=== PATIENT | male | born 1980 | race Caucasian/White ===

== ENCOUNTER 2018-11-02 10:12 | Emergency (ER) | payer MEDICAID, SELFPAY ==
[2018-11-02 10:13] VITALS: BP 146/81; PULSE 85; RESP 18; TEMP 36.8; O2SAT 99; BMI 20.8
--- NOTE | 2018-11-02 10:21 | CT_ITS ---
STUDY: CT ABDOMEN AND PELVIS WITHOUT CONTRAST REASON FOR EXAM: Male, 38 years old. Left flank pain. Frequent urination. RADIATION DOSAGE (If Supplied By Facility): CTDIvol = ( 6.04 ) mGy, DLP = ( 283.89 ) mGycm TECHNIQUE: Transaxial images were obtained from the dome of the diaphragm to the symphysis pubis without oral contrast, and without intravenous contrast. Sagittal and coronal images were reconstructed. Individualized dose optimization techniques were used for this CT. COMPARISON: None. FINDINGS: The visualized lung bases are unremarkable. The visualized portions of the heart are within normal limits. Normal liver. Normal gallbladder and extrahepatic biliary system. Normal spleen. Normal pancreas. Normal bilateral adrenal glands. Normal right kidney. Normal left kidney. There is a small hiatal hernia. Normal small intestine. Normal colon. The appendix is visualized and appears normal. Normal abdominal aorta. Normal inferior vena cava. Normal retroperitoneum. Normal urinary bladder. Normal abdominal wall. Normal osseous structures. CT/Abdomen/Pelvis without Cont IMPRESSION: Normal unenhanced CT of the abdomen and pelvis. Electronically Signed: Cong Jenkins, at 12:20 EDT , Service support ,
[2018-11-02 10:48] LABS: Absolute Neutrophil Count 3.2 X10^3/uL (2.0-7.7); Basophil# 0.02 X10^3/uL; Basophil% 0.3 % (0-1); Eosinophil# 0.12 X10^3/uL; Hematocrit 48.1 % (40-54); Hemoglobin 16.6 g/dl (13.0-16.5); Lymphocyte % 36.2 % (19-41); Mean Corp Hgb Conc 34.5 g/gl (32-36); Mean Corpuscular Hgb 32.2 pg (27.0-32.0); Mean Corpuscular Volume 93.4 fL (80-94); Mean Platelet Vol. 10.6 fl (6.2-12.0); Monocyte# 0.56 X10^3/uL; Monocyte% 9.2 % (0-10); Neutrophil # 3.16 X10^3/uL (2.7-7.7); Neutrophil % 52.1 % (47-70); Platelet Count 238 K/mm3 (150-450); RBC Distribution Width CV 12.9 % (11.6-14.6); RBC Distribution Width SD 43.9 fl (35.1-43.9); Red Blood Count 5.15 M/mm3 (4.6-6.2); White Blood Count 6.1 K/mm3 (4.4-11.0)
[2018-11-02 10:49] LABS: POSITIVE COUNT NO; POSITIVE DIFFERENTIAL NO; POSITIVE MORPHOLOGY NO
[2018-11-02 10:56] LABS: Anion Gap 1 (5-15); BUN 12 mg/dL (7-18); Calcium,Total 8.9 mg/dL (8.5-10.1); Chloride 108 mmol/L (98-107); Creatinine, Serum 1.09 mg/dL (0.70-1.30); EST Glomerular Filtration Rate 80 mL/min (>60); Est Glom Filt Rate - Afr Amer 97 mL/min (>60); Estimated Creatinine Clearance 93.15 ml/min; Glucose 71 mg/dL (74-106); Sodium Level 139 mmol/L (136-145)
--- NOTE | 2018-11-02 11:09 | ED.VISSUMM ---
- ER Visit Summary Date of Service: 11/02/18 Chief Complaint: [Left flank pain History of Present Illness: The patient is a 38 M [presents to the emergency department complaint of left flank pain x1 week. Patient rates his pain as an 8 out of 10. Patient is complaining of dysuria and some frequency. Patient has had subjective fever and sweats. Patient does not have a history of kidney stones. He denies any abnormal penile discharge.] Physical Examination: [HEENT-PERRLA, EOMI. Cranial nerves II through XII grossly intact. TMs clear. Mucous membranes moist. No adenopathy. Cardiovascular-regular rate and rhythm without murmur or ectopy Lungs-clear to auscultation, chest wall stable without crepitus or subcu emphysema Abdomen-normoactive bowel sounds, soft. Patient has some mild tenderness over left lower quadrant with some guarding. Patient has some CVA tenderness on the left. Patient has no rebound, rigidity, or perineal signs. Back exam-patient has some CVA tenderness on the left with some mild lumbar paraspinal tenderness on palpation. Patient has negative straight leg raises. Deep tendon reflexes are plus out of 4 bilaterally at the patella and Achilles. Patient has normal 5 extension. Extremities-intact ?4, normal range of motion, normal pulses, atraumatic] Test Results: [CBC with differential obtained showed a white count of 6.1, hemoglobin 16, hematocrit 48, platelets 238. Chemistries are unremarkable. Urinalysis was normal. CT flank showed nothing acute.] Emergency Department Course and Treatment: [Patient was medicated with Toradol] Treatment Plan: [Patient will be given a prescription for naproxen and Flexeril. Patient advised to follow-up with primary care physician personal care assistant for no doc within the next 5 to 7 days.] Disposition: [Discharged home in stable condition] Impression: [Left flank pain-etiology uncertain] This note was generated with [employer] dictation software. It may contain incorrect words, spelling, and punctuation that were not noted in review of the chart prior to signing ED Disposition - Plan for ED Patient: Referrals: Care Physician,No Primary [Primary Care Provider] -
--- NOTE | 2018-11-02 11:12 | ED.DCSUM_ITS ---
- ER Visit Summary Date of Service: 11/02/18 Chief Complaint: [Left flank pain History of Present Illness: The patient is a 38 M [presents to the emergency department complaint of left flank pain x1 week. Patient rates his pain as an 8 out of 10. Patient is complaining of dysuria and some frequency. Patient has had subjective fever and sweats. Patient does not have a history of kidney stones. He denies any abnormal penile discharge.] Physical Examination: [HEENT-PERRLA, EOMI. Cranial nerves II through XII grossly intact. TMs clear. Mucous membranes moist. No adenopathy. Cardiovascular-regular rate and rhythm without murmur or ectopy Lungs-clear to auscultation, chest wall stable without crepitus or subcu emphysema Abdomen-normoactive bowel sounds, soft. Patient has some mild tenderness over left lower quadrant with some guarding. Patient has some CVA tenderness on the left. Patient has no rebound, rigidity, or perineal signs. Back exam-patient has some CVA tenderness on the left with some mild lumbar paraspinal tenderness on palpation. Patient has negative straight leg raises. Deep tendon reflexes are plus out of 4 bilaterally at the patella and Achilles. Patient has normal 5 extension. Extremities-intact ?4, normal range of motion, normal pulses, atraumatic] Test Results: [CBC with differential obtained showed a white count of 6.1, hemoglobin 16, hematocrit 48, platelets 238. Chemistries are unremarkable. Urinalysis was normal. CT flank showed nothing acute.] Emergency Department Course and Treatment: [Patient was medicated with Toradol] Treatment Plan: [Patient will be given a prescription for naproxen and Flexeril. Patient advised to follow-up with primary care physician spinner iron for no doc within the next 5 to 7 days.] Disposition: [Discharged home in stable condition] Impression: [Left flank pain-etiology uncertain] This note was generated with [employer] dictation software. It may contain incorrect words, spelling, and punctuation that were not noted in review of the chart prior to signing ED Disposition - Plan for ED Patient: Referrals: Care Physician,No Primary [Primary Care Provider] -
[2018-11-02] MEDS: 0.9% Normal Saline 1,000 ML 150 ML IV (11:21)
[2018-11-02] MEDS: Ketorolac 30 MG/ML Syringe IV (11:21)
[2018-11-02 11:43] LABS: Bacteria 0 SEEN /hpf (None Seen); Mucous, Urine 0 SEEN /hpf (<or=2+); Red Blood Cells-Urine 0 SEEN /hpf (0-5); Squamous Epithelial Cells - UA 0 SEEN /hpf (0-5); White Blood Cells 0 SEEN /hpf (0-5)
[2018-11-02 11:52] LABS: Color, Urine Yellow (Yellow); Glucose, Dipstick Normal (Normal); Ketone-Dipstick Negative (Negative); Leukocyte Esterase-Dipstick Negative /ul (Negative); Nitrite-Dipstick Negative (Negative); Occult Blood-Urine Negative /ul (Negative); Protein-Dipstick Negative (Negative); Specific Gravity, Urine 1.005 (1.002-1.030); Urine Bilirubin Dipstick Negative (Negative); Urine Clarity Clear (Clear); Urine Urobilinogen Normal (Normal)
--- NOTE | 2018-11-02 12:53 | ED.DEP ---
ED Disposition - Plan for ED Patient: Instructions: ED Flank Pain Uncertain Cause Prescriptions: Naproxen [Naprosyn] 500 mg PO BID PRN #20 tab Cyclobenzaprine [Flexeril] 10 mg PO TID PRN #20 tab PRN Reason: Muscle Spasm Referrals: Care Physician,No Primary [Primary Care Provider] - Clarke Parks III, MD [STAFF PHYSICIAN] - 5-7 Days
[2018-11-02 13:21] VITALS: RESP 14
== END 2018-11-02 13:21 | disposition home or self-care (01) ==
LOC: ED 10:37
PROVIDERS: Emergency Provider Emergency Medicine
DX: R10.9 Unspecified abdominal pain (principal); M54.9 Dorsalgia, unspecified; R30.0 Dysuria; R11.0 Nausea; Z72.0 Tobacco use
CPT/HCPCS: 74176; 80048; 81001; 85025; 96361; 96374; 99283; J7030

== ENCOUNTER 2019-02-01 19:05 | Emergency (ER) | payer SELFPAY ==
[2019-02-01 19:06] VITALS: BP 149/89; PULSE 88; RESP 18; TEMP 36.1; O2SAT 99; BMI 20.7
[2019-02-01] MEDS: Ketorolac 60 MG/2 ML Vial IM (20:54)
[2019-02-01] MEDS: Orphenadrine 60 MG/2 ML Ampul IM (20:54)
--- NOTE | 2019-02-01 20:54 | ED.VISSUMM ---
- ER Visit Summary Date of Service: 02/01/19 Chief Complaint: Back pain History of Present Illness: The patient is a 38 M who presents with back pain that began today. Patient states he does a lot of lifting at work but denies any specific injury or trauma. Patient describes the pain is dull, aching, throbbing, and sharp at times. Patient states the pain is over the lower lumbar area and radiates to his right leg. Patient states nothing makes the pain better or worse. Patient also admits to some mild abdominal pain. Patient denies any nausea or vomiting. Patient denies any bowel or bladder changes. Patient denies any saddle anesthesia. Physical Examination: Vital signs are stable. Patient is afebrile. Patient is in no acute distress. Musculoskeletal exam reveals tenderness and spasm of the lumbar paraspinal muscles. There is some mild midline tenderness. There is no bony crepitance or step-off. Range of motion was limited in all motions of the lumbar spine secondary to pain. Strength is 5/5 bilaterally in the lower extremities. Deep tendon reflexes are 2/4 bilateral and lower extremities. There are no sensory deficits noted. Heart was regular rate and rhythm. Lungs are clear and equal bilaterally. Abdomen is soft and nontender. Emergency Department Course and Treatment: Patient was advised that this is most likely a lumbar strain. Patient was given injections of Toradol and Norflex here. Patient was given a prescription for meloxicam. Patient was instructed to follow-up with his primary care physician in 5 to 7 days. Patient understood and was agreeable with the plan. All questions were answered. Disposition: Discharge home Impression: Lumbosacral strain This note was generated with [employer] dictation software. It may contain incorrect words, spelling, and punctuation that were not noted in review of the chart prior to signing ED Disposition - Plan for ED Patient: Disposition: Home or Assisted Living Diagnosis: Lumbosacral strain Instructions: Back Sprain/Strain Prescriptions: Meloxicam 15 mg PO DAILY PRN PRN #20 tab PRN Reason: Pain Prescription Printed Referrals: Care Physician,No Primary [Primary Care Provider] - Dale Guerrier MD [STAFF PHYSICIAN] - 5-7 Days
== END 2019-02-01 21:27 | disposition home or self-care (01) ==
PROVIDERS: Emergency Provider Emergency Medicine
DX: S39.012A Strain of muscle, fascia and tendon of lower back, initial encounter (principal); X50.9XXA Other and unspecified overexertion or strenuous movements or postures, initial encounter; Y93.9 Activity, unspecified; Y92.9 Unspecified place or not applicable; Y99.9 Unspecified external cause status; R10.9 Unspecified abdominal pain; K21.9 Gastro-esophageal reflux disease without esophagitis; Z72.0 Tobacco use
CPT/HCPCS: 96372; 99282

== ENCOUNTER 2020-04-26 12:31 | Emergency (ER) | payer SELFPAY ==
[2020-04-26 12:32] VITALS: BP 121/73; PULSE 71; RESP 18; TEMP 36.4; O2SAT 100; BMI 19.5
--- NOTE | 2020-04-26 12:52 | EKG12_ITS ---
Test Reason : CP Blood Pressure : / mmHG Vent. Rate : 061 BPM Atrial Rate : 061 BPM P-R Int : 110 ms QRS Dur : 100 ms QT Int : 394 ms P-R-T Axes : 077 084 059 degrees QTc Int : 396 ms Sinus rhythm with short TN Incomplete right bundle branch block Borderline ECG Confirmed by ADAM SAWYER, VIELKA ([id number]), editorial writer IRLANDA DICKENS ([id number]) on 05/03/2020 12:50:07 PM Referred By: INGRID/YIN Confirmed By:RASHAD MEDINA MD
--- NOTE | 2020-04-26 12:52 | ED.VIS.GEN ---
History of Present Illness Chief Complaint: Chest Pain Informant: Patient Onset: Month(s) Timing: Intermittent Current Severity: - - Resolved Narrative: Patient presents secondary to intermittent pain in the left upper chest that has been ongoing for the last month or more. Patient denies having pain presently. He did have an episode this morning that lasted approximately 30 minutes. He states pain can happen with activity or at rest. He describes a sharp stabbing pain in the left upper chest near his shoulder and he starts to feel like he is getting cramps in his left arm. He will sometimes feel short of breath with this but not consistently. He has not noted a decrease in activity tolerance lately. He denies history of cardiac disease in himself or in family. Past Medical History - Allergies and Home Meds Allergies/Adverse Reactions: Allergies No Known Allergies Allergy (Verified 04/26/20 12:31) Primary Care Physician: Care Physician,No Primary [Primary Care Provider] - Past Medical History: - - Sciatica Lives: Spouse/ Significant Other Smoking Status: Current every day smoker Review of Systems General: Denies: Chills, Fever Eyes: Denies: Visual changes - bilaterally ENT: Denies: Bilateral ear pain Cardiovascular: Reports: Chest pain. Denies: Palpitations, Heart racing Respiratory: Reports: Dyspnea. Denies: Cough Gastrointestinal: Denies: Abdominal pain, Nausea, Vomiting, Diarrhea Genitourinary: Denies: Dysuria Musculoskeletal: Reports: Extremity Pain Skin: Denies: Rash Neurological: Denies: Headache Hematologic: Denies: Easy bruising, Easy bleeding Allergy: Denies: Uticaria Physical Exam Vital Signs/Narrative: Vital Signs Temp Pulse Resp BP Pulse Ox 04/26/20 12:32 97.5 F L 71 18 121/73 H 100 Inital Vital Signs reviewed: Yes General: Well nourished, Well developed Head: Normocephalic ENT: Moist mucous membranes Neck: Supple Cardiovascular: Regular rate, Regular rhythm Respiratory: No distress, CTA bilaterally, Chest nontender Abdomen: Soft, Nontender Extremities: Nontender Skin: Normal color Neurological: Alert, Oriented x3, Normal Strength, Normal Sensation Psychological: Normal affect Diagnostic/Tx/Re-eval Impressions Chest X-Ray 04/26/20 13:00 IMPRESSION: Normal x-ray examination of the chest. Electronically Signed: Cong Jenkins, at 13:14 EDT , Service support , 04/26/20 13:00 Chest 1 View (Portable) [RAD] Stat Laboratory Results 04/26/20 04/26/20 04/26/20 12:45 12:45 12:45 WBC 8.0 RBC 4.96 Hgb 16.1 Hct 47.8 MCV 96.4 H MCH 32.5 H MCHC 33.7 RDW Std Deviation 44.4 H RDW Coeff of Romel 12.4 Plt Count 235 MPV 10.4 Immature Gran % (Auto) 0.100 Neut % (Auto) 59.5 Lymph % (Auto) 30.9 [place] % (Auto) 7.7 Eos % (Auto) 1.5 Baso % (Auto) 0.3 Absolute Neuts (auto) 4.7 Absolute Lymphs (auto) 2.46 Nucleated RBC % 0 D-Dimer Quant (PE/DVT) 0.29 Sodium 140 Potassium 3.6 Chloride 107 Carbon Dioxide 31.0 Anion Gap 2 L BUN 16 Creatinine 1.14 Estim Creat Clear Calc 82.57 Est GFR (MDRD) Af Amer 92 Est GFR (MDRD) Non-Af 76 BUN/Creatinine Ratio 14.0 Glucose 92 Calcium 8.9 Troponin I < 0.015 - EKG Initial EKG Interpretation: Sinus Rhythm - Sinus at 61 with no acute ischemia. - Medical Decision Making He was given aspirin on arrival. 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 On repeat evaluation he is walking around the room without difficulty. Test results are discussed with him. He states that he has no insurance so will be referred to [facility] Donald for follow-up. ED Disposition - Plan for ED Patient: Disposition: Home or Assisted Living Diagnosis: Atypical chest pain Instructions: ED Chest Pain Atypical Unkn Cause Referrals: Melissa Donald [NON-STAFF] - As soon as possible
[2020-04-26 12:58] LABS: Absolute Lymphocyte Count 2.46 X10^3/uL (0.83-4.51); Absolute Neutrophil Count 4.7 X10^3/uL (2.0-7.7); Basophil# 0.02 X10^3/uL; Basophil% 0.3 % (0-1); Eosinophil# 0.12 X10^3/uL; Eosinophils% 1.5 % (0-5); Hematocrit 47.8 % (40-54); Hemoglobin 16.1 g/dL (13.0-16.5); Lymphocyte # 2.46 X10^3/ul (4.0); Lymphocyte % 30.9 % (19-41); Mean Corp Hgb Conc 33.7 g/dL (32-36); Mean Corpuscular Hgb 32.5 pg (27.0-32.0); Mean Corpuscular Volume 96.4 fL (80-94); Mean Platelet Vol. 10.4 fl (6.2-12.0); Monocyte# 0.61 X10^3/uL; Monocyte% 7.7 % (0-10); NRBC Flagged by Analyzer 0 % (0-5); Neutrophil # 4.73 X10^3/uL (2.7-7.7); Neutrophil % 59.5 % (47-70); Platelet Count 235 K/mm3 (150-450); RBC Distribution Width CV 12.4 % (11.6-14.6); RBC Distribution Width SD 44.4 fl (35.1-43.9); Red Blood Count 4.96 M/mm3 (4.6-6.2)
--- NOTE | 2020-04-26 13:00 | RAD_ITS ---
STUDY: X-RAY CHEST REASON FOR EXAM: Male, 39 years old. Chest pain TECHNIQUE: Single AP portable view of the chest. COMPARISON: None. FINDINGS: EKG electrodes are seen. The lungs are clear and expanded. There is no demonstrated pleural abnormality. Normal size heart. Normal mediastinum and tanya. Normal visualized pulmonary arteries. Normal visualized aortic arch and descending thoracic aorta. Normal visualized thoracic spine. Normal visualized ribs, clavicles, and shoulders. There is no demonstrated abnormality of the visualized soft tissue structures of the upper abdomen. RAD/Chest 1 View (Portable) IMPRESSION: Normal x-ray examination of the chest. Electronically Signed: Cong Jenkins, at 13:14 EDT , Service support ,
[2020-04-26 13:14] LABS: Anion Gap 2 (5-15); BUN 16 mg/dL (7-18); Calcium,Total 8.9 mg/dL (8.5-10.1); Chloride 107 mmol/L (98-107); Creatinine, Serum 1.14 mg/dL (0.70-1.30); EST Glomerular Filtration Rate 76 mL/min (>60); Est Glom Filt Rate - Afr Amer 92 mL/min (>60); Estimated Creatinine Clearance 82.57 ml/min; Glucose 92 mg/dL (74-106); Potassium 3.6 mmol/L (3.5-5.1); Sodium Level 140 mmol/L (136-145)
[2020-04-26 13:18] LABS: D-Dimer Quantitative (DVT/PE) 0.29 FEU/ug/m (0.27-0.49)
[2020-04-26] MEDS: Aspirin 81 MG TAB.CHEW 324 MG PO (13:43)
[2020-04-26 13:53] VITALS: BP 113/56; PULSE 75; RESP 18; O2SAT 99
== END 2020-04-26 13:54 | disposition home or self-care (01) ==
PROVIDERS: Emergency Provider Emergency Medicine
DX: R07.89 Other chest pain (principal); R06.00 Dyspnea, unspecified; F17.200 Nicotine dependence, unspecified, uncomplicated
CPT/HCPCS: 71045; 80048; 84484; 85025; 85379; 93005; 99283; A4216

== ENCOUNTER 2021-02-25 10:41 | Emergency (ER) | payer SELFPAY ==
[2021-02-25 10:43] VITALS: BP 130/109; PULSE 86; RESP 19; TEMP 36.8; O2SAT 99; BMI 18.6
--- NOTE | 2021-02-25 11:08 | RAD_ITS ---
STUDY: X-RAY - RIGHT ANKLE REASON FOR EXAM: Right ankle pain, right ankle injury. TECHNIQUE: 3 view(s) of the ankle. COMPARISON: None. FINDINGS: Normal visualized distal tibia and fibula. Normal medial and lateral malleoli. Normal tibiotalar articulation and ankle mortise. Normal visualized talus and calcaneus. The visualized subtalar, talonavicular, calcaneocuboid and tarsal articulations are normal. The soft tissue structures are unremarkable. RAD/Ankle min 3 Views IMPRESSION: Normal x-ray examination of the right ankle. Electronically Signed: Simon Juarez MD at 11:39 EDT Tel , Service support ,
--- NOTE | 2021-02-25 12:12 | EDS_ITS ---
HPI History of Present Illness Chief Complaint: Lower Extremity Injury Informant: patient Narrative Narrative: Patient is a 40-year-old male who presents to the emergency department for right ankle/top of his foot pain. He states that yesterday he kicked a bag in the [employer] wrong and has been having pain since. He feels like it is starting to improve at this point. He has been able to walk on it. Does occasionally get pain going up the leg. He denies any loss of sensation. He has been taking ibuprofen at home for this which has not been giving significant relief. Patient wanted to make sure his foot was not broken. He denies any other complaints at this time. PFSH PFSH Home Medications meloxicam 15 mg PO DAILY PRN PRN #20 tab 02/01/19 [Rx Last Taken Unknown] Allergy/AdvReac Type Severity Reaction Status Date / Time No Known Allergies Allergy Verified 02/25/21 10:42 Surgical History (Updated 02/25/21 @ 10:43 by Chanelle Pak) History of right hip replacement Social History Smoking Status: Current every day smoker tobacco type: cigarettes ROS ROS ED Constitutional Constitutional ED: Denies chills or fever(s) Cardiovascular Cardiovascular: Denies chest pain Respiratory/Chest Respiratory/Chest: Denies cough or dyspnea Gastrointestinal Gastrointestinal: Denies abdominal pain, nausea or vomiting Musculoskeletal Musculoskeletal: Reports arthralgias; Denies back pain or neck pain Integumentary Denies rash Neurologic Neurologic: Denies dizziness, headache(s) or weakness EXAM Physical Exam Const Vital Signs: 02/25/21 10:43 02/25/21 12:26 Temperature 98.3 F Temperature Source Temporal Pulse Rate 86 72 Respiratory Rate 19 H 15 Blood Pressure 130/109 H 139/88 H Blood Pressure Mean 116 Pulse Ox 99 99 Oxygen Delivery Method Room Air Positive well nourished and well developed General Appearance ED: well developed and NAD HEENT Reports normocephalic, head/scalp atraumatic and moist mucous membranes Eyes PERRL and EOMs intact bilaterally Neck supple Resp normal respiratory effort Cardio regular rate and regular rhythm Extremity normal to inspection Extremity Narrative: 2+ DP pulse. Sensation intact. 5 out of 5 muscle stren gth. Able to bear weight without difficulty. No tenderness over the base of the fifth metatarsal. General Extremety ED: Negative for edema or tenderness General Extremity: Negative for edema Neuro no sensory deficits noted Sensorium / Orientation: alert Motor Exam: strength 5/5 throughout Psych mental status grossly normal Skin no rashes or lesions noted MDM MDM MDM Narrative Medical decision making narrative: Patient presents to the emergency department for right foot/ankle pain after kicking a bag at [employer]. X-ray did not reveal acute traumatic finding. He has benign physical exam without significant pain. He is neurovascular intact. Will discharge home in stable condition. Recommend treating with rice and [id number] pain medication. He is requesting work excuse today and be will be provided one. He is to follow-up with his PCP. Return precautions reviewed. Radiography Diagnostic Testing: Radiology Impression Ankle X-Ray 02/25/21 11:08 IMPRESSION: Normal x-ray examination of the right ankle. Electronically Signed: Simon Juarez MD at 11:39 EDT Tel , Service support , Discharge Plan Triage Chief Complaint: Lower Extremity Injury ED Provider: Fuentes Neumann Dx/Rx/DC Orders Clinical Impression: Pain in joint, ankle and foot Instructions: ED Foot Sprain Prescriptions: No Action meloxicam 15 MG tablet 15 mg PO DAILY PRN PRN (Reason: Pain) Qty: 20 RF: 0 Primary Care Provider: Care Physician,No Primary Referrals: Care Physician,No Primary [Primary Care Provider] - 3-5 Days if not improving Disposition Disposition: Home, Self Care Discharge Date/Time: 02/25/21 12:34
[2021-02-25 12:26] VITALS: BP 139/88; PULSE 72; RESP 15; O2SAT 99
== END 2021-02-25 12:34 | disposition home or self-care (01) ==
LOC: ED 12:23
PROVIDERS: Emergency Provider Emergency Medicine
DX: M79.671 Pain in right foot (principal); F17.210 Nicotine dependence, cigarettes, uncomplicated
CPT/HCPCS: 73610; 99282

== ENCOUNTER 2021-03-23 10:31 | Emergency (ER) | payer SELFPAY ==
[2021-03-23 10:32] VITALS: BP 125/66; PULSE 106; RESP 18; TEMP 36; O2SAT 98; BMI 21.1
--- NOTE | 2021-03-23 11:20 | EDS_ITS ---
HPI History of Present Illness Chief Complaint: Back Narrative Narrative: Patient presenting with left lumbar paraspinal back pain. He states this is been a problem for him for the last few months. He states intermittently this flares up. He believes it is due to the dioni in his right h ip which caused him to have antalgic gait and strained his back. Patient was seen at [facility] yesterday and given cyclobenzaprine, Naprosyn, lidocaine patches. Patient states this is not helping. Patient has been walking with a cane for the last few months intermittently. He is currently needing to use this to relieve the strain on the left side. He was able to ambulate into the ER. Denies loss of bladder or bowel control. PFSH PFSH Home Medications cyclobenzaprine 10 mg PO TID 03/23/21 [History Last Taken Unknown] diazepam [Valium] 5 mg PO TID PRN #12 tab 03/23/21 [Rx Last Taken Unknown] naproxen 500 mg PO BID 03/23/21 [History Last Taken Unknown] Allergy/AdvReac Type Severity Reaction Status Date / Time No Known Allergies Allergy Verified 03/23/21 10:34 Surgical History History of right hip replacement Social History Smoking Status: Current every day smoker tobacco type: cigarettes ROS ROS ED Constitutional Constitutional ED: Denies chills or fever(s) Eyes Eyes: Denies blurry vision or diplopia ENT ENT ED: Denies rhinorrhea or sore throat Cardiovascular Cardiovascular: Denies palpitations or racing heartbeat Respiratory/Chest Respiratory/Chest: Denies dyspnea or dyspnea on exertion Gastrointestinal Gastrointestinal: Denies abdominal pain, nausea or vomiting Genitourinary Genitourinary ED: Denies dysuria or hematuria Musculoskeletal Musculoskeletal: Reports back pain Integumentary Denies Abrasions or rash Neurologic Neurologic: Reports paresthesias LLE; Denies headache(s) EXAM Physical Exam Const Vital Signs: 03/23/21 10:32 Temperature 96.8 F L Temperature Source Temporal Pulse Rate 106 H Respiratory Rate 18 Blood Pressure 125/66 H Blood Pressure Mean 85 Pulse Ox 98 Oxygen Delivery Method Room Air Positive well nourished General Appearance ED: NAD HEENT Reports moist mucous membranes Negative for trauma Eyes PERRL and EOMs intact bilaterally Resp normal respiratory effort and clear to auscultation bilaterally Cardio regular rate and regular rhythm Back/Spine Back/Spine Narrative: No midline spinal thoracic or lumbar tenderness. No deformities or step-offs. There is tenderness to palpation of the left lumbar paraspinal musculature laterally and extending into the left gluteal region. Extremity normal to inspection Neuro oriented x3 Sensorium / Orientation: alert Skin no rashes or lesions noted MDM MDM MDM Narrative Medical decision making narrative: Patient given Valium and Toradol and has improvement of his pain. I did obtain an x-ray of the lumbar spine which shows no acute fracture or subluxation but does identify mild dextroscoliosis on my interpretation of the radiologist does agree. Patient states this has been a long-term problem for the last few months. Has not been seen by physical therapy and he has been missing this due to work. He states is been out of work for the last several days and has not tried to get to physical therapy. He has not contacted his previous surgeon to set this up in [place]. Patient does not have any signs of cauda equina syndrome. I counseled him I can give him a short supply of the Valium however he needs to get follow-up with his surgeon in order to set up physical therapy in [place] versus follow-up with his previous facility. He will be discharged home in stable condition. Impression: 1. Lumbar strain Radiography Diagnostic Testing: Radiology Impression Lumbar Spine X-Ray 03/23/21 11:20 IMPRESSION: Mild dextroscoliosis. Electronically Signed: Cody Crawford MD at 12:59 EDT Tel , Service support , Discharge Plan Triage Chief Complaint: Back ED Provider: Harris Madrid Dx/Rx/DC Orders Instructions: ED Back Spasm, No Trauma Prescriptions: New diazepam [Valium] 5 mg tablet 5 mg PO TID PRN (Reason: muscle spasm) Qty: 12 RF: 0 No Action cyclobenzaprine 10 mg tablet 10 mg PO TID RF: 0 naproxen 500 mg tablet 500 mg PO BID RF: 0 Primary Care Provider: Care Physician,No Primary Referrals: Care Physician,No Primary [Primary Care Provider] - Disposition Disposition: Home, Self Care Discharge Date/Time: 03/23/21 14:00
--- NOTE | 2021-03-23 11:20 | RAD_ITS ---
STUDY: X-RAY - LUMBAR SPINE REASON FOR EXAM: Male, 40 years old. back pain TECHNIQUE: 2 view(s) of the lumbar spine were obtained. COMPARISON: None FINDINGS: Normal lumbar lordosis. Mild dextroscoliosis centered at L3. There is a normal alignment of the vertebrae. Normal vertebral bodies and endplates. Normal disc space heights. The soft tissue structures are unremarkable. RAD/Lumbar Spine 2 or 3 Views IMPRESSION: Mild dextroscoliosis. Electronically Signed: Cody Crawford MD at 12:59 EDT Tel , Service support ,
[2021-03-23] MEDS: diazePAM 5 MG Tablet PO (12:00)
[2021-03-23] MEDS: Ketorolac 15 MG/ML Vial IM (12:00)
== END 2021-03-23 14:00 | disposition home or self-care (01) ==
PROVIDERS: Emergency Provider Student in an Organized Health Care Education/Training Program
DX: S39.012A Strain of muscle, fascia and tendon of lower back, initial encounter (principal); X58.XXXA Exposure to other specified factors, initial encounter; Y93.9 Activity, unspecified; Y92.9 Unspecified place or not applicable; Y99.9 Unspecified external cause status; F17.210 Nicotine dependence, cigarettes, uncomplicated; Z79.1 Long term (current) use of non-steroidal anti-inflammatories (NSAID); Z79.899 Other long term (current) drug therapy; Z96.641 Presence of right artificial hip joint
CPT/HCPCS: 72100; 96372; 99282

== ENCOUNTER 2021-04-01 15:08 | Emergency (ER) | payer OTHER, SELFPAY ==
[2021-04-01 15:09] VITALS: BP 123/70; PULSE 82; RESP 17; TEMP 37; O2SAT 99; BMI 20.7
--- NOTE | 2021-04-01 18:02 | EDS_ITS ---
HPI History of Present Illness Chief Complaint: Back Informant: patient Narrative Narrative: Recurrent nontraumatic low back pain over the weekend. Pain goes down the buttocks to the calf. No loss of bowel or bladder control. Reports was seen over a week ago for right-sided pain that was improving. He is using a cane to help with stability. Denies paresthesias or weakness. Denies history of gastric ulcers or kidney injury. Reports he is given prescription for naproxen and Flexeril for which he ran out on . He has not follow-up with PCP for which he states he does have an Leonard. Prior similar symptoms: Yes PFSH PFSH Home Medications cyclobenzaprine 10 mg PO TID 03/23/21 [History Last Taken Unknown] diazepam [Valium] 5 mg PO TID PRN #12 tab 03/23/21 [Rx Last Taken Unknown] naproxen 500 mg PO BID 03/23/21 [History Last Taken Unknown] cyclobenzaprine 10 mg PO TID PRN #12 tab 04/01/21 [Rx Last Taken Unknown] naproxen 500 mg PO BID PRN #20 tab 04/01/21 [Rx Last Taken Unknown] Allergy/AdvReac Type Severity Reaction Status Date / Time No Known Allergies Allergy Verified 04/01/21 15:09 Surgical History History of right hip replacement Social History Smoking Status: Current every day smoker tobacco type: cigarettes ROS ROS ED Constitutional Constitutional ED: Denies chills, fever(s) or sweats Eyes Eyes: Denies change in vision ENT ENT ED: Denies dysphagia or sore throat Cardiovascular Cardiovascular: Denies chest pain, leg edema, palpitations or racing heartbeat Respiratory/Chest Respiratory/Chest: Denies cough, dyspnea or dyspnea on exertion Gastrointestinal Gastrointestinal: Denies abdominal pain, diarrhea, nausea or vomiting Genitourinary Genitourinary ED: Denies dysuria, hematuria or urinary frequency Musculoskeletal Musculoskeletal: Reports back pain; Denies extremity pain or neck pain Integumentary Denies rash or wounds Neurologic Neurologic: Denies headache(s), paresthesias or weakness EXAM Physical Exam Const Vital Signs: 04/01/21 15:09 04/01/21 18:23 Temperature 98.6 F Temperature Source Temporal Pulse Rate 82 82 Respiratory Rate 17 16 Blood Pressure 123/70 H Blood Pressure Mean 87 Pulse Ox 99 98 Oxygen Delivery Method Room Air Positive well nourished and well developed General Appearance ED: well developed and NAD HEENT Reports moist mucous membranes normocephalic and atraumatic Eyes PERRL, EOMs intact bilaterally and conjunctivae normal General Eye ED: Yes normal appearance of both eyes Neck no lymphadenopathy and supple General: Negative for tenderness Chest Wall Chest: Negative for tenderness Resp normal respiratory effort and normal air movement Effort and Inspection: symmetric chest movement; Negative for respiratory distress Cardio regular rate, regular rhythm and no murmurs Peripheral Pulses: pulses 2+ throughout GI normal to inspection, nondistended, normoactive bowel sounds and non-tender Palpation: Negative for guarding or rebound tenderness present Back/Spine no CVA tenderness and no thoracic nor lumbar tenderness Back/Spine Narrative: Paralumbar tenderness on the left straight leg test -1+ patellar reflex bilaterally. Pulses intact distally. Extremity normal to inspection General Extremety ED: Negative for edema or tenderness General Extremity: Negative for edema Neuro oriented x3 and no sensory deficits noted Sensorium / Orientation: awake and alert Skin no rashes or lesions noted and no wounds MDM MDM MDM Narrative Medical decision making narrative: Patient nontoxic vital stable he was ambulated by myself in the halls with no difficulties. Discussed sciatica. He will be refilled for his NSAIDs and muscle relaxers. Discussed with patient dana monson to follow-up with his PCP for potential physical therapy if symptoms persist. He understands. All questions were answered. Patient is being discharged under pandemic conditions under declared global, national and state disaster activation, with limited medical resources. Patient and community understands this. Results discussed in layman's terms to the patient satisfaction. All questions answered in layman's terms. Patient understands importance of follow-up care as directed. Patient has been instructed to return to the ED immediately if new symptoms, problems, or questions occur. We mutually agree with the plan of disposition. The patient understand that they may call or return with any questions or concerns at any time. Discharge Plan Triage Chief Complaint: Back ED Provider: Shane Chavarria Dx/Rx/DC Orders Clinical Impression: Sciatica of left side, Back pain Instructions: ED Sciatica Prescriptions: New naproxen 500 MG tablet 500 mg PO BID PRN Qty: 20 RF: 0 cyclobenzaprine 10 mg tablet 10 mg PO TID PRN (Reason: muscle spasm) Qty: 12 RF: 0 No Action cyclobenzaprine 10 mg tablet 10 mg PO TID RF: 0 naproxen 500 mg tablet 500 mg PO BID RF: 0 diazepam [Valium] 5 mg tablet 5 mg PO TID PRN (Reason: muscle spasm) Qty: 12 RF: 0 Primary Care Provider: Care Physician,No Primary Referrals: Care Physician,No Primary [Primary Care Provider] - Activity Restrictions/Additional Instructions: Medication refill sent to your pharmacy. Follow-up with your doctor in [place] in next 3 to 5 days reevaluation further treatment as an outpatient. Disposition Disposition: Home, Self Care Discharge Date/Time: 04/01/21 18:24
[2021-04-01] MEDS: cycloBENZAPRine HCl 10 MG Tablet PO (18:22)
[2021-04-01 18:23] VITALS: PULSE 82; RESP 16; O2SAT 98
[2021-04-01] MEDS: Naproxen 250 MG Tablet 500 MG PO (18:23)
== END 2021-04-01 18:24 | disposition home or self-care (01) ==
LOC: ED 17:48
PROVIDERS: Emergency Provider Emergency Medicine
DX: M54.42 Lumbago with sciatica, left side (principal); F17.210 Nicotine dependence, cigarettes, uncomplicated; Z79.1 Long term (current) use of non-steroidal anti-inflammatories (NSAID); Z79.899 Other long term (current) drug therapy; Z96.641 Presence of right artificial hip joint
CPT/HCPCS: 99283

== ENCOUNTER 2022-10-24 11:07 | Emergency (ER) | payer OTHER, MEDICAID, SELFPAY ==
[2022-10-24 11:08] VITALS: BP 134/93; PULSE 108; RESP 14; TEMP 36.5; O2SAT 100; BMI 20.4
--- NOTE | 2022-10-24 11:46 | EKG12_ITS ---
Test Reason : SOB Blood Pressure : / mmHG Vent. Rate : 073 BPM Atrial Rate : 073 BPM P-R Int : 096 ms QRS Dur : 096 ms QT Int : 376 ms P-R-T Axes : 071 084 068 degrees QTc Int : 414 ms Sinus rhythm with short AL Incomplete right bundle branch block Borderline ECG Confirmed by ADAM SAWYER, VIELKA ([id number]), editorial assistant ANDREW SABA ([id number]) on 10/27/2022 11:30:44 AM Referred By: Sandra Washington Confirmed By:RASHAD MEDINA MD
[2022-10-24] MEDS: 0.9% Normal Saline 1,000 ML 1000 ML IV (12:03)
--- NOTE | 2022-10-24 12:09 | RAD_ITS ---
STUDY: X-RAY CHEST REASON FOR EXAM: Male, 42 years old. Dyspnea TECHNIQUE: PA and lateral views of the chest. COMPARISON: April 26, 2020 chest x-ray FINDINGS: There is persistent nonspecific hyperinflation of the lungs. There is no demonstrated pleural abnormality. Normal size heart. Normal mediastinum and tanya. Normal visualized pulmonary arteries. Normal visualized aortic arch and descending thoracic aorta. Normal visualized thoracic spine. Normal visualized ribs, clavicles, and shoulders. There is no demonstrated abnormality of the visualized soft tissue structures of the upper abdomen. RAD/Chest PA and Lateral IMPRESSION: Nonspecific hyperinflation of the lungs maintenance of the normal curvature of the hemidiaphragms. No visualized focal infiltrate. Electronically Signed: Clara Knutson MD at 12:31 EDT ,
[2022-10-24 12:11] LABS: Absolute Lymphocyte Count 1.84 X10^3/uL (0.83-4.51); Absolute Neutrophil Count 5.1 X10^3/uL (2.0-7.7); Basophil# 0.03 X10^3/uL; Basophil% 0.4 % (0-1); Eosinophils% 1.3 % (0-5); Hematocrit 45.8 % (40-54); Hemoglobin 15.3 g/dL (13.0-16.5); Lymphocyte # 1.84 X10^3/ul (0.83-4.51); Lymphocyte % 23.6 % (19-41); Mean Corp Hgb Conc 33.4 g/dL (32-36); Mean Corpuscular Hgb 32.1 pg (27.0-32.0); Mean Platelet Vol. 9.8 fl (6.2-12.0); Monocyte# 0.67 X10^3/uL; Monocyte% 8.6 % (0-10); NRBC Flagged by Analyzer 0 % (0-5); Neutrophil # 5.13 X10^3/uL (2.7-7.7); Neutrophil % 65.7 % (47-70); Platelet Count 255 K/mm3 (150-450); RBC Distribution Width CV 12.3 % (11.6-14.6); RBC Distribution Width SD 44.1 fl (35.1-43.9); Red Blood Count 4.77 M/mm3 (4.6-6.2); White Blood Count 7.8 K/mm3 (4.4-11.0)
[2022-10-24 12:11] LABS: Bacteria 0 SEEN /hpf (None Seen); Mucous, Urine 0 SEEN /hpf (<or=2+); Red Blood Cells-Urine 0 SEEN /hpf (0-5); Squamous Epithelial Cells - UA 0 SEEN /hpf (0-5); White Blood Cells 0 SEEN /hpf (0-5)
[2022-10-24 12:16] LABS: Color, Urine Yellow (Yellow); Glucose, Dipstick Normal (Normal); Ketone-Dipstick 5 mg/dl (Negative); Leukocyte Esterase-Dipstick Negative /ul (Negative); Nitrite-Dipstick Negative (Negative); Occult Blood-Urine Negative /ul (Negative); Protein-Dipstick Negative (Negative); Urine Bilirubin Dipstick Negative (Negative); Urine Clarity Sl. Cloudy (Clear); Urine Urobilinogen 1 mg/dl (Normal); Urine pH 6.5 (5.0 - 8.0)
[2022-10-24 12:30] LABS: ALB/GLOB Ratio 1.3 RATIO (0.9-2.4); AST(SGOT) 19 U/L (15-37); Alanine Aminotransfer ALT/SGPT 26 U/L (16-61); Alkaline Phosphatase 89 U/L (45-117); Anion Gap -1 (5-15); BUN 12 mg/dL (7-18); BUN/Creat Ratio 12.6 RATIO (10-20); Calcium,Total 8.8 mg/dL (8.5-10.1); Chloride 107 mmol/L (98-107); Creatinine, Serum 0.95 mg/dL (0.70-1.30); EST Glomerular Filtration Rate 92 mL/min (>60); Est Glom Filt Rate - Afr Amer 111 mL/min (>60); Estimated Creatinine Clearance 100.73 ml/min; Glucose 92 mg/dL (74-106); Lipase 21 U/L (13-75); Potassium 3.8 mmol/L (3.5-5.1); Sodium Level 138 mmol/L (136-145); Troponin-I HS 4 pg/mL (3.0-78.0)
[2022-10-24] MEDS: Ipratropium/Albuterol Sulfate 3 ML AMPUL.NEB INHALATION (12:36)
[2022-10-24 12:37] VITALS: PULSE 79; RESP 18
--- NOTE | 2022-10-24 12:39 | ED.VIS.DYS ---
HPI History of Present Illness Chief Complaint: Shortness of Breath Informant: patient Narrative Narrative: Patient is a 42-year-old male with a extensive mental health history, chronic tobacco use (states he just quit), extensive history of dizziness and syncope and homelessness presenting with shortness of breath. Patient states he has been short of breath for the past few months. When asked why he came in today he states is because he was short of breath. He denies any chest pain. He notes he does have some tightness. States he had been having sharp intermittent abdominal pains however he was seen at [facility] and told that there is nothing wrong. States he gets intermittent pains in his left chest and left arm but is not having any currently. Denies any recent illnesses but states he has been told he had bronchitis in the past and this feels the same. Notes that he had previously had inhaler does not currently have 1. No other complaints at this time. Nursing staff informs me that patient's primary goal for being here today was a try to get out of the rain. Apparently cannot state his mother's because he was arrested yesterday for punching his brother. He is no longer welcome at the homeless custodial. [facility] Medical History Bipolar 1 disorder Manic depression PTSD (post-traumatic stress disorder) Home Medications cyclobenzaprine 10 mg tablet 10 mg PO TID 03/23/21 [History Last Taken Unknown] diazepam 5 mg tablet (Valium) 5 mg PO TID PRN muscle spasm #12 tabs 03/23/21 [Rx Last Taken Unknown] naproxen 500 mg tablet 500 mg PO BID 03/23/21 [History Last Taken Unknown] cyclobenzaprine 10 mg tablet 10 mg PO TID PRN muscle spasm #12 tabs 04/01/21 [Rx Last Taken Unknown] naproxen 500 mg tablet 500 mg PO BID PRN #20 tabs 04/01/21 [Rx Last Taken Unknown] Allergy/AdvReac Type Severity Reaction Status Date / Time No Known Allergies Allergy Verified 10/24/22 11:10 Surgical History History of right hip replacement Social History Smoking Status: Current every day smoker tobacco type: cigarettes ROS ROS ED Constitutional Constitutional ED: Denies chills or fever(s) Eyes Eyes: Denies change in vision Cardiovascular Cardiovascular: Denies chest pain Respiratory/Chest Respiratory/Chest: Reports cough and dyspnea Gastrointestinal Gastrointestinal: Reports abdominal pain; Denies nausea or vomiting Musculoskeletal Musculoskeletal: Reports myalgias; Denies arthralgias Integumentary Denies rash Neurologic Neurologic: Denies headache(s) Psychiatric Psychiatric: Reports anxiety Hematologic/Lymphatic Hematologic/Lymphatic: Denies easy bleeding or easy bruising EXAM Physical Exam Const Vital Signs: 10/24/22 11:08 10/24/22 11:19 10/24/22 12:37 Temperature 97.7 F L Temperature Source Temporal Pulse Rate 108 H 79 Respiratory Rate 14 18 Respiratory Effort Normal Non-Labored Respiratory Depth Normal Respiratory Pattern Normal Blood Pressure 134/93 H Blood Pressure Mean 106 Pulse Ox 100 Oxygen Delivery Method Room Air Positive well nourished and well developed General Appearance ED: well developed and NAD HEENT Reports moist mucous membranes atraumatic Eyes PERRL and EOMs intact bilaterally Neck supple, no meningeal signs and no JVD Resp normal respiratory effort Auscultation: diminished lung sounds; Negative for rhonchi or wheezes Cardio regular rate, regular rhythm and no murmurs GI non-tender, non-distended and no masses Extremity normal to inspection Neuro oriented x3 Sensorium / Orientation: alert Motor Exam: Negative for general weakness Psych mental status grossly normal Mood & Affect: Negative for depressed or anxious Skin no wounds and skin turgor normal MDM MDM MDM Narrative Medical decision making narrative: Patient is evaluated for multiple complaints but the biggest 1 is shortness of breath. He is well-appearing. He is not hypoxic. He does have some slightly tight breath sounds however this significantly improves with an aerosol in the ER. Patient is given IV fluids. Is a 5+ ketones in his urine. No signs of pneumonia. Chest x-ray to read by myself as well as radiology. Does not have a leukocytosis. No significant electrolyte abnormalities. Patient will be given an albuterol inhaler. Will be discharged from the emergency room. At this time I do not think requires admission. I do not think this is referred cardiac pain. Patient is not hypoxic and his tachycardia improved with fluids in the ER. I have a low pretest suspicion for pulmonary emboli and do not think further work-up for that is indicated emergently at this time especially given the chronicity of his complaints. Lab Data Attestation: I reviewed the patient's lab results. Labs: Laboratory Results - last 24 hr 10/24/22 10/24/22 10/24/22 11:50 12:00 12:00 WBC 7.8 RBC 4.77 Hgb 15.3 Hct 45.8 MCV 96.0 H MCH 32.1 H MCHC 33.4 RDW Std Deviation 44.1 H RDW Coeff of Romel 12.3 Plt Count 255 MPV 9.8 Immature Gran % (Auto) 0.400 Neut % (Auto) 65.7 Lymph % (Auto) 23.6 [place] % (Auto) 8.6 Eos % (Auto) 1.3 Baso % (Auto) 0.4 Absolute Neuts (auto) 5.1 Absolute Lymphs (auto) 1.84 Nucleated RBC % 0 Sodium 138 Potassium 3.8 Chloride 107 Carbon Dioxide 32.0 Anion Gap -1 L BUN 12 Creatinine 0.95 Estim Creat Clear Calc 100.73 Est GFR (MDRD) Af Amer 111 Est GFR (MDRD) Non-Af 92 BUN/Creatinine Ratio 12.6 Glucose 92 Calcium 8.8 Total Bilirubin 0.70 AST 19 ALT 26 Alkaline Phosphatase 89 Troponin I High Sens 4 Total Protein 7.0 Albumin 4.0 Globulin 3.0 Albumin/Globulin Ratio 1.3 Lipase 21 Urine Color Yellow Urine Clarity Sl. Cloudy Urine pH 6.5 Ur Specific [place] 1.010 Urine Protein Negative Urine Glucose (UA) Normal Urine Ketones 5 H Urine Occult Blood Negative Urine Nitrite Negative Urine Bilirubin Negative Urine Urobilinogen 1 H Ur Leukocyte Esterase Negative Urine RBC 0 SEEN Urine WBC 0 SEEN Ur Squamous Epith Cells 0 SEEN Urine Bacteria 0 SEEN Urine Mucus 0 SEEN Radiography Chest X-Ray - ED: 2 View, Read by ED Physician, Read by Radiologist, No Acute Disease and - (Hyperinflated) Diagnostic Testing: Clinical Impression(s) from Imaging Studies Chest X-Ray 10/24/22 12:09 IMPRESSION: Nonspecific hyperinflation of the lungs maintenance of the normal curvature of the hemidiaphragms. No visualized focal infiltrate. Electronically Signed: Clara Knutson MD at 12:31 EDT , Rhythm Strip Rhythm Strip: Sinus Rhythm Rate: 73 Ectopy: None EKG Initial EKG: Attestation: I personally reviewed and interpreted this EKG as follows: Interpretation: Sinus Rhythm Comments: Sinus rhythm at a rate of 73 bpm Normal axis WA interval shortened at 96 ms Normal QRS and QTc Normal ST segment Discharge Plan Triage Chief Complaint: Shortness of Breath ED Provider: Sandra Washington Dx/Rx/DC Orders Clinical Impression: Dyspnea, Reactive airway disease Instructions: ED Dyspnea Prescriptions: No Action cyclobenzaprine 10 mg tablet 10 mg PO TID Label Comments: take 1 tablet by mouth three times a day for 5 days naproxen 500 mg tablet 500 mg PO BID Label Comments: take 1 tablet by mouth twice a day for 7 days diazepam [Valium] 5 mg tablet 5 mg PO TID PRN (Reason: muscle spasm) Qty: 12 0RF naproxen 500 MG tablet 500 mg PO BID PRN Qty: 20 0RF cyclobenzaprine 10 mg tablet 10 mg PO TID PRN (Reason: muscle spasm) Qty: 12 0RF Primary Care Provider: Care Physician,No Primary Referrals: Melissa Donald [Non-Staff] - As soon as possible Care Physician,No Primary [Primary Care Provider] - Activity Restrictions/Additional Instructions: Continue to quit smoking. Use inhaler 1 to 2 puffs every 4-6 hours as needed for shortness of breath. Disposition Disposition: Home, Self Care
--- NOTE | 2022-10-24 12:55 | CM.ED ---
Social Work Note Referral Source: case find Referral Reason: no PCP SW met with patient and introduced herself and role as [facility] Engineering Team Supervisor. Patient was seated on hospital bed and agreeable to speak with SW. SW inquired about patient's insurance and current PCP. Patient verified insurance and reports he goes to [facility] for medical care. 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 Patient inquired about a letter needed for [employer] assistance that states he can only work 80 hours a month. SW encouraged the patient to follow up with his counselor and PCP to coordinate care and provide this letter. Patient reported an understanding and declined a list of local PCPs in network with patient's insurance and accepting new patients. Patient voiced no other needs at this time. SW remains available if needs arise. Charlene Harris MSW, ALEN
[2022-10-24] MEDS: Albuterol Sulfate 8 gm Inhaler (60 puffs) 2 PUFF INHALATION (15:32)
[2022-10-24 15:33] VITALS: BP 128/82; RESP 16
== END 2022-10-24 15:38 | disposition home or self-care (01) ==
PROVIDERS: Emergency Provider Emergency Medicine; Referring Provider Emergency Medicine; Visit Provider Emergency Medicine
DX: R06.00 Dyspnea, unspecified (principal); F31.9 Bipolar disorder, unspecified; J45.909 Unspecified asthma, uncomplicated; R10.9 Unspecified abdominal pain; R05.9 Cough, unspecified; F17.210 Nicotine dependence, cigarettes, uncomplicated; Z79.899 Other long term (current) drug therapy
CPT/HCPCS: 71046; 80053; 81001; 83690; 84484; 85025; 93005; 94640; 96360; 96361; 99284

== ENCOUNTER 2023-03-21 09:18 | Emergency (ER) | payer OTHER, MEDICAID, SELFPAY ==
[2023-03-21 09:20] VITALS: BP 128/91; PULSE 90; RESP 14; TEMP 36.2; O2SAT 100; BMI 18.7
--- NOTE | 2023-03-21 10:10 | EDS_ITS ---
HPI History of Present Illness Chief Complaint: Chest Pain Informant: patient Narrative Narrative: 42-year-old male presented for the evaluation of chest pain. Patient states he has a history of anxiety depression. He states that over the past several months he has had intermittent sharp pain in the left arm that radiates towards his left chest. He points to the left lower lateral pectoralis region and into his back as the area that hurts. It lasts seconds occasionally a minute. He states that it will sometimes make his left arm go numb. Reports mention it to his family doctor who felt that it was musculoskeletal in nature. He denies any DVT or PE risk factors. Denies any shortness of breath sweating nausea or vomiting. No leg symptoms. [facility] Medical History Bipolar 1 disorder Manic depression PTSD (post-traumatic stress disorder) Home Medications cyclobenzaprine 10 mg tablet 10 mg PO TID 03/23/21 [History Last Taken Unknown] diazepam 5 mg tablet (Valium) 5 mg PO TID PRN muscle spasm #12 tabs 03/23/21 [Rx Last Taken Unknown] naproxen 500 mg tablet 500 mg PO BID 03/23/21 [History Last Taken Unknown] cyclobenzaprine 10 mg tablet 10 mg PO TID PRN muscle spasm #12 tabs 04/01/21 [Rx Last Taken Unknown] naproxen 500 mg tablet 500 mg PO BID PRN #20 tabs 04/01/21 [Rx Last Taken Unknown] Allergy/AdvReac Type Severity Reaction Status Date / Time No Known Allergies Allergy Verified 03/21/23 09:19 Surgical History History of right hip replacement Social History Smoking Status: Current every day smoker tobacco type: cigarettes ROS ROS ED Constitutional Constitutional ED: Denies chills, fever(s) or weight loss Eyes Eyes: Denies change in vision or diplopia ENT ENT ED: Denies ear pain, rhinorrhea or sore throat Cardiovascular Cardiovascular: Reports chest pain; Denies orthopnea, palpitations or racing heartbeat Respiratory/Chest Respiratory/Chest: Denies cough, dyspnea or orthopnea Gastrointestinal Gastrointestinal: Denies abdominal pain, diarrhea, nausea or vomiting Genitourinary Genitourinary ED: Denies dysuria, hematuria or urinary frequency Musculoskeletal Musculoskeletal: Reports other Details: Left arm pain ; Denies arthralgias or myalgias Integumentary Denies abscess or rash Neurologic Neurologic: Reports paresthesias LUE; Denies headache(s) or weakness Psychiatric Psychiatric: Denies anxiety, depression, suicidal ideation or suicidal thoughts Endocrine Endocrinology: Denies polydipsia, polyphagia or polyuria Allergic/Immunologic Allergic/Immunologic ED: Denies mouth swelling, tongue swelling or urticaria EXAM Physical Exam Narrative Exam Narrative: Resting comfortable before and during exam Const Vital Signs: 03/21/23 09:20 Temperature 97.1 F L Temperature Source Temporal Pulse Rate 90 Respiratory Rate 14 Blood Pressure 128/91 H Blood Pressure Mean 103 Pulse Ox 100 Oxygen Delivery Method Room Air Positive well nourished and well developed General Appearance ED: well developed HEENT Reports normocephalic, head/scalp atraumatic and moist mucous membranes Eyes PERRL and EOMs intact bilaterally Neck no lymphadenopathy, supple and no JVD Resp normal respiratory effort and clear to auscultation bilaterally Cardio regular rate, regular rhythm and no murmurs GI normal to inspection, nondistended, normoactive bowel sounds and non-tender Palpation: soft Back/Spine no CVA tenderness and normal ROM Extremity normal to inspection Extremity Narrative: Patient states when I lightly touched the deltoid region of his arm that caused a sharp pain to go into his chest General Extremety ED: Negative for edema General Extremity: Negative for edema Neuro oriented x3 and CN's II-XII intact bilaterally Sensorium / Orientation: alert Motor Exam: strength 5/5 throughout Psych mental status grossly normal Mood & Affect: Negative for depressed or tearful Skin no rashes or lesions noted and no wounds MDM MDM MDM Narrative Medical decision making narrative: CBC shows normal white count and hemoglobin. Platelet count of 270. Potassium slightly low at 3.3. I did advise him that he should eat foods that are higher in potassium such as bananas. His troponin is normal magnesium is normal. My interpretation of the chest x-ray is no acute process. EKG is in normal sinus rhythm. I think the pain in his left arm and chest is most likely musculoskeletal in nature. Patient appears very flippant about his symptoms which makes me wonder why he felt he should come to the emergency room if he is so disinterested in his evaluation and his symptoms. I think the patient can follow-up with primary care. Lab Data Attestation: I reviewed the patient's lab results. Labs: Laboratory Results - last 24 hr 03/21/23 09:30 WBC 6.5 RBC 4.88 Hgb 15.8 Hct 47.6 MCV 97.5 H MCH 32.4 H MCHC 33.2 RDW Std Deviation 46.1 H RDW Coeff of Romel 12.7 Plt Count 270 MPV 10.6 Immature Gran % (Auto) 0.500 Neut % (Auto) 61.1 Lymph % (Auto) 25.7 [place] % (Auto) 9.0 Eos % (Auto) 3.1 Baso % (Auto) 0.6 Absolute Neuts (auto) 4.0 Absolute Lymphs (auto) 1.66 Nucleated RBC % 0 Sodium 140 Potassium 3.3 L Chloride 107 Carbon Dioxide 29.0 Anion Gap 4 L BUN 11 Creatinine 1.13 Estim Creat Clear Calc 77.58 Est GFR (MDRD) Af Amer 91 Est GFR (MDRD) Non-Af 75 BUN/Creatinine Ratio 9.7 L Glucose 73 L Calcium 8.2 L Magnesium 2.2 Troponin I High Sens 4 Radiography Diagnostic Testing: Clinical Impression(s) from Imaging Studies Chest X-Ray 03/21/23 10:30 IMPRESSION: No radiographic evidence of acute cardiopulmonary disease. Electronically Signed: Abdoulaye Guevara MD at 11:12 EDT , EKG Initial EKG: Attestation: I personally reviewed and interpreted this EKG as follows: Comments: Sinus rhythm with ventricular rate of 78 bpm. No concerning features of ACS noted Discharge Plan Triage Chief Complaint: Chest Pain ED Provider: Marcellus Rocha Dx/Rx/DC Orders Prescriptions: No Action cyclobenzaprine 10 mg tablet 10 mg PO TID Patient Comments: take 1 tablet by mouth three times a day for 5 days naproxen 500 mg tablet 500 mg PO BID Patient Comments: take 1 tablet by mouth twice a day for 7 days diazepam [Valium] 5 mg tablet 5 mg PO TID PRN (Reason: muscle spasm) Qty: 12 0RF naproxen 500 MG tablet 500 mg PO BID PRN Qty: 20 0RF cyclobenzaprine 10 mg tablet 10 mg PO TID PRN (Reason: muscle spasm) Qty: 12 0RF Primary Care Provider: Care Physician,No Primary Referrals: Care Physician,No Primary [Primary Care Provider] -
[2023-03-21 10:26] LABS: Absolute Lymphocyte Count 1.66 X10^3/uL (0.83-4.51); Basophil# 0.04 X10^3/uL; Basophil% 0.6 % (0-1); Eosinophils% 3.1 % (0-5); Hematocrit 47.6 % (40-54); Hemoglobin 15.8 g/dL (13.0-16.5); Lymphocyte # 1.66 X10^3/ul (0.83-4.51); Lymphocyte % 25.7 % (19-41); Mean Corp Hgb Conc 33.2 g/dL (32-36); Mean Corpuscular Hgb 32.4 pg (27.0-32.0); Mean Corpuscular Volume 97.5 fL (80-94); Mean Platelet Vol. 10.6 fl (6.2-12.0); Monocyte# 0.58 X10^3/uL; NRBC Flagged by Analyzer 0 % (0-5); Neutrophil # 3.96 X10^3/uL (2.7-7.7); Neutrophil % 61.1 % (47-70); Platelet Count 270 K/mm3 (150-450); RBC Distribution Width CV 12.7 % (11.6-14.6); RBC Distribution Width SD 46.1 fl (35.1-43.9); Red Blood Count 4.88 M/mm3 (4.6-6.2); White Blood Count 6.5 K/mm3 (4.4-11.0)
--- NOTE | 2023-03-21 10:30 | RAD_ITS ---
INDICATION: chest pain EXAMINATION/TECHNIQUE: X-RAY - XR Chest 1 View COMPARISON: Prior study dated: 10/24/2022. FINDINGS: LINES/DEVICES: None. LUNGS: No consolidation, edema or effusion. No pneumothorax. MEDIASTINUM AND CARDIOVASCULAR STRUCTURES: Cardiac silhouette not enlarged. Central airways and mediastinal contour are unremarkable. BONES AND SOFT TISSUES: Unremarkable. RAD/Chest 1 View (Portable) IMPRESSION: No radiographic evidence of acute cardiopulmonary disease. Electronically Signed: Abdoulaye Guevara MD at 11:12 EDT ,
[2023-03-21 10:43] LABS: Anion Gap 4 (5-15); BUN 11 mg/dL (7-18); BUN/Creat Ratio 9.7 RATIO (10-20); Calcium,Total 8.2 mg/dL (8.5-10.1); Chloride 107 mmol/L (98-107); Creatinine, Serum 1.13 mg/dL (0.70-1.30); EST Glomerular Filtration Rate 75 mL/min (>60); Est Glom Filt Rate - Afr Amer 91 mL/min (>60); Estimated Creatinine Clearance 77.58 ml/min; Glucose 73 mg/dL (74-106); Magnesium 2.2 mg/dL (1.6-2.6); Potassium 3.3 mmol/L (3.5-5.1); Sodium Level 140 mmol/L (136-145); Troponin-I HS (w/2H Reflex) 4 pg/mL (3.0-78.0)
[2023-03-21 12:14] VITALS: BP 140/91; PULSE 78
[2023-03-21 12:22] LABS: Reflex Troponin-HS? (from REC) Y
== END 2023-03-21 12:18 | disposition home or self-care (01) ==
PROVIDERS: Emergency Provider Emergency Medicine; Visit Provider Emergency Medicine
DX: R07.89 Other chest pain (principal); F31.9 Bipolar disorder, unspecified; M54.9 Dorsalgia, unspecified; M79.602 Pain in left arm; F17.210 Nicotine dependence, cigarettes, uncomplicated; F41.9 Anxiety disorder, unspecified; Z79.899 Other long term (current) drug therapy
CPT/HCPCS: 71045; 80048; 83735; 84484; 85025; 93005; 99283; A4216

== ENCOUNTER 2023-03-24 07:39 | Emergency (ER) | payer OTHER, SELFPAY ==
[2023-03-24 07:40] VITALS: BP 115/83; PULSE 67; RESP 20; TEMP 35.4; O2SAT 99; BMI 19.6
--- NOTE | 2023-03-24 07:50 | EKG12_ITS ---
Test Reason : Blood Pressure : / mmHG Vent. Rate : 071 BPM Atrial Rate : 071 BPM P-R Int : 118 ms QRS Dur : 100 ms QT Int : 390 ms P-R-T Axes : 070 086 059 degrees QTc Int : 423 ms Normal sinus rhythm with sinus arrhythmia Normal ECG Confirmed by ADAM SAWYER, VIELKA ([id number]), editor magazine [place] KIRBY ([id number]) on 03/24/2023 10:33:27 AM Referred By: Confirmed By:RASHAD MEDINA MD
--- NOTE | 2023-03-24 07:50 | EX.ED.VIS.PS ---
HPI HPI - Psych History of Present Illness Chief Complaint: Dizziness Narrative Narrative: 42-year-old male past medical history of depression and anxiety, states he takes medication for anxiety and sees a counselor at [facility]/psychiatrist presents via EMS with panic attack and near syncope today. Of note, he was seen in the emergency department 3 days ago for chest pain. This morning, he was walking to work, states he felt very lightheaded as if he was going to pass out and started seeing blue spots. He called EMS because he started crying because he did not feel well and thought he was going to pass out. He currently denies any suicidal ideation or homicidal ideation, but states that although he stays with his mother, he comes and goes and is essentially homeless. He was walking on his way to work when he started feeling symptoms of a panic attack. However he denies any chest pain or shortness of breath. He is feeling almost back to normal. He did take one of his antianxiety medications last night. [facility] Medical History Bipolar 1 disorder Manic depression PTSD (post-traumatic stress disorder) Home Medications cyclobenzaprine 10 mg tablet 10 mg PO TID 03/23/21 [History Last Taken Unknown] diazepam 5 mg tablet (Valium) 5 mg PO TID PRN muscle spasm #12 tabs 03/23/21 [Rx Last Taken Unknown] naproxen 500 mg tablet 500 mg PO BID 03/23/21 [History Last Taken Unknown] cyclobenzaprine 10 mg tablet 10 mg PO TID PRN muscle spasm #12 tabs 04/01/21 [Rx Last Taken Unknown] naproxen 500 mg tablet 500 mg PO BID PRN #20 tabs 04/01/21 [Rx Last Taken Unknown] Allergy/AdvReac Type Severity Reaction Status Date / Time No Known Allergies Allergy Verified 03/21/23 09:19 Surgical History History of right hip replacement Social History Smoking Status: Current every day smoker tobacco type: cigarettes ROS ROS ED ROS Narrative Constitutional: No fever, no chills. HEENT: No sore throat. No neck pain. No loss of vision. No rhinorrhea. Cardiovascular: No chest pain. No palpitations. No pedal edema. Respiratory: No cough, no shortness of breath. Abdominal: No abdominal pain. No nausea. No vomiting. Genitourinary: No dysuria. No hematuria. Musculoskeletal: No myalgias. No arthralgias. Neurologic: No headaches. No dizziness. Positive lightheadedness and near syncope. Skin: No rash. No change in color. Psychiatric: No depression. Positive anxiety. Positive panic attack. EXAM Physical Exam Narrative Exam Narrative: Afebrile. Vital signs noted. HEENT: Normocephalic. Atraumatic. PERRL, EOMI. Neck soft and supple. No point tenderness or step off. Cardiovascular: Regular rate and rhythm. No murmurs, rubs, or gallops appreciated. Respiratory: No tachypnea. Lungs clear to auscultation bilaterally. Gastrointestinal: Abdomen soft, nontender, with normoactive bowel sounds. No rebound or guarding. Neurological: Awake. Alert. Nonfocal, nonlateralizing. Skin: No rash. Normal color. No pallor. Musculoskeletal: No pedal edema. Full range of motion extremities. Const Vital Signs: 03/24/23 07:40 03/24/23 08:10 Temperature 95.8 F L Temperature Source Temporal Pulse Rate 67 Pulse Rate [Lying] 64 Pulse Rate [Sitting (for 1 minute prior to obtaining)] 73 Pulse Rate [Standing (for 1 minute prior to obtaining)] 77 Respiratory Rate 20 H Blood Pressure 115/83 H Blood Pressure [Lying] 112/78 Blood Pressure [Sitting (for 1 minute prior to obtaining)] 124/80 H Blood Pressure [Standing (for 1 minute prior to obtaining)] 113/86 H Blood Pressure Mean 93 Blood Pressure Mean [Lying] 89 Blood Pressure Mean [Sitting (for 1 minute prior to obtaining)] 94 Blood Pressure Mean [Standing (for 1 minute prior to obtaining)] 95 Pulse Ox 99 Oxygen Delivery Method Room Air MDM MDM MDM Narrative Medical decision making narrative: In the differential diagnosis is panic attack versus orthostatic hypotension. I reviewed his records from 3 days ago and he had complete work-up for chest pain. Given his near syncope today, I will obtain an EKG and orthostatics. I do not feel repeat laboratory work or imaging is indicated. He is not showing any vertiginous type symptoms so I do not feel CT imaging of the brain is indicated. Additionally, he has had problems with anxiety in the past. I am not concerned about suicidal ideation in this patient or homicidal ideation so I do not feel that he requires medical clearance for emergent psychiatric admission. I reviewed the nursing notes, and his orthostatics are negative. EKG was obtained and interpreted by myself independently as normal sinus rhythm at 71 bpm with sinus arrhythmia but no acute ST changes. No STEMI. At this point in time, I feel he be discharged safely home to follow-up with a primary care provider, and his counselor. I feel that most likely had a panic attack this morning and is having anxiety regarding multiple stressors in his life. Once again, I do not feel he requires emergent psychiatric admission as he denied suicidal ideation or homicidal ideation currently. Return instructions to the emergency department were reviewed. Disposition is discharged home in stable condition. History & Record Review Discussion w/independent historian: Patient Additional record(s) reviewed:: Prior labs Discharge Plan Triage Chief Complaint: Dizziness Other Complaint: Anxiety ED Provider: Angel Middleton Dx/Rx/DC Orders Clinical Impression: Anxiety, Near syncope, Panic attack Instructions: ED Anxiety Reaction, ED Panic Attack, ED Near-Fainting, Uncertain Cause Prescriptions: No Action cyclobenzaprine 10 mg tablet 10 mg PO TID Patient Comments: take 1 tablet by mouth three times a day for 5 days naproxen 500 mg tablet 500 mg PO BID Patient Comments: take 1 tablet by mouth twice a day for 7 days diazepam [Valium] 5 mg tablet 5 mg PO TID PRN (Reason: muscle spasm) Qty: 12 0RF naproxen 500 MG tablet 500 mg PO BID PRN Qty: 20 0RF cyclobenzaprine 10 mg tablet 10 mg PO TID PRN (Reason: muscle spasm) Qty: 12 0RF Stand Alone Forms: ED Work / School Excuse Primary Care Provider: Care Physician,No Primary Referrals: Care Physician,No Primary [Primary Care Provider] - Activity Restrictions/Additional Instructions: Follow-up with your counselor as soon as possible, if not today. Disposition Disposition: Home, Self Care
[2023-03-24 08:10] VITALS: BP 112/78; BP 113/86; BP 124/80; PULSE 64; PULSE 73; PULSE 77
== END 2023-03-24 08:37 | disposition home or self-care (01) ==
PROVIDERS: Emergency Provider Emergency Medicine; Visit Provider Emergency Medicine
DX: F41.0 Panic disorder [episodic paroxysmal anxiety] (principal); F31.9 Bipolar disorder, unspecified; R55 Syncope and collapse; F17.210 Nicotine dependence, cigarettes, uncomplicated; I49.8 Other specified cardiac arrhythmias; Z79.899 Other long term (current) drug therapy
CPT/HCPCS: 93005; 99284

== ENCOUNTER 2024-01-18 08:04 | Emergency (ER) | payer OTHER, MEDICAID, SELFPAY ==
[2024-01-18 08:06] VITALS: BP 113/75; PULSE 85; RESP 16; TEMP 36.2; O2SAT 97; BMI 19.8
--- NOTE | 2024-01-18 08:25 | CT_ITS ---
STUDY: CT ABDOMEN AND PELVIS WITH CONTRAST REASON FOR EXAM: Male, 43 years old. Abdominal pain RADIATION DOSAGE (If Supplied By Facility): CTDIvol = ( 9.34 ) mGy, DLP = ( 441.48 ) mGycm TECHNIQUE: Transaxial images were obtained from the dome of the diaphragm to the symphysis pubis without oral contrast. IV 100mL Isovue-300 was administered. Sagittal and coronal images were reconstructed. Individualized dose optimization techniques were used for this CT. COMPARISON: Comparison is made with prior study of November 02, 2018. FINDINGS: The visualized lung bases are unremarkable. The visualized portions of the heart are within normal limits. Normal liver. Normal gallbladder and extrahepatic biliary system. Normal spleen. Normal pancreas. Normal bilateral adrenal glands. Normal right kidney. Normal left kidney. Normal visualized stomach. Normal small intestine. Large amount of fecal material is seen in the colon. The appendix is visualized and appears normal. Normal abdominal aorta. Normal inferior vena cava. Normal retroperitoneum. Normal urinary bladder. Calcified phleboliths are seen in the pelvis. Normal abdominal wall. The patient is status post open reduction and internal fixation of the left intertrochanteric fracture. CT/Abdomen/Pelvis W IV Cont ONLY IMPRESSION: Large amount of fecal material is seen in the colon. Electronically Signed: Cong Jenkins MD at 9:17 EDT ,
--- NOTE | 2024-01-18 08:25 | EKG12_ITS ---
Test Reason : Blood Pressure : / mmHG Vent. Rate : 070 BPM Atrial Rate : 070 BPM P-R Int : 090 ms QRS Dur : 096 ms QT Int : 388 ms P-R-T Axes : 070 084 059 degrees QTc Int : 419 ms Sinus rhythm with short NV Otherwise normal ECG Confirmed by PAULINA SAWYER, RUI ([id number]), senior technical editor GEOR[place]IA KIRBY ([id number]) on 01/19/2024 8:33:33 AM Referred By: Confirmed By:RUI GALLARDO MD
--- NOTE | 2024-01-18 08:26 | ED.VIS.GI ---
HPI HPI - GI History of Present Illness Chief Complaint: Nausea/Vomiting Narrative Narrative: 43-year-old male presenting with diffuse abdominal pain, nausea, vomiting. He describes his pain as crampy. He states he has had this for the last 3 days. He reports not being able to hold anything down. He denies diarrhea and actually states he feels constipated. Patient states that he also now starting to have some left-sided chest pain since yesterday. It is sharp on the left side of the chest. He denies cardiac history or trauma. He states he gets intermittent numbness and tingling down his left arm. He denies any cardiac history. No history of DVT/PE and no risk factors. He states he has not eaten anything abnormal. He does not know if he has any sick contacts but he is homeless. Denies having fever. Patient also states that he has something on my paint. He said that the bump. He states it is not on his testicles. [facility] Medical History PTSD (post-traumatic stress disorder) Bipolar 1 disorder Manic depression Home Medications ?Medication ?Instructions ?Recorded ?Last Taken ?Type cyclobenzaprine 10 mg tablet 10 mg PO TID 03/23/21 Unknown History diazepam 5 mg tablet (Valium) 5 mg PO TID PRN muscle spasm #12 03/23/21 Unknown Rx tabs naproxen 500 mg tablet 500 mg PO BID 03/23/21 Unknown History cyclobenzaprine 10 mg tablet 10 mg PO TID PRN muscle spasm #12 04/01/21 Unknown Rx tabs naproxen 500 mg tablet 500 mg PO BID PRN #20 tabs 04/01/21 Unknown Rx ondansetron 4 mg disintegrating 4 mg PO Q8H PRN PRN Nausea #10 tabs 01/18/24 Unknown Rx tablet polyethylene glycol 3350 17 17 g PO DAILY PRN constipation 01/18/24 Unknown Rx gram/dose oral powder (Miralax) #119 grams Allergy/AdvReac Type Severity Reaction Status Date / Time No Known Allergies Allergy Verified 01/18/24 08:05 Surgical History History of right hip replacement Social History Smoking Status: Current every day smoker tobacco type: cigarettes ROS ROS ED Constitutional Constitutional ED: Denies chills, fever(s) or sweats Eyes Eyes: Denies blurry vision or change in vision ENT ENT ED: Denies ear pain or sore throat Cardiovascular Cardiovascular: Reports chest pain; Denies palpitations or racing heartbeat Respiratory/Chest Respiratory/Chest: Denies cough, dyspnea or sputum Gastrointestinal Gastrointestinal: Reports abdominal pain, nausea and vomiting; Denies constipation or diarrhea Genitourinary Genitourinary ED: Denies dysuria, hematuria or urinary frequency Musculoskeletal Musculoskeletal: Denies arthralgias, myalgias or neck pain Integumentary Reports other Details: Mass on perineum ; Denies abscess, Abrasions or rash Neurologic Neurologic: Denies headache(s), paresthesias or weakness Psychiatric Psychiatric: Denies anxiety, depression, suicidal ideation or suicidal thoughts Endocrine Endocrinology: Denies polydipsia or polyuria EXAM Physical Exam Const Vital Signs: 01/18/24 08:06 Temperature 97.1 F L Temperature Source Temporal Pulse Rate 85 Respiratory Rate 16 Blood Pressure 113/75 Blood Pressure Mean 87 Pulse Ox 97 Oxygen Delivery Method Room Air Positive well nourished and well developed General Appearance ED: well developed; Negative for pallor HEENT Reports moist mucous membranes normocephalic Eyes PERRL and EOMs intact bilaterally Neck no lymphadenopathy Resp normal respiratory effort and clear to auscultation bilaterally Cardio regular rate and regular rhythm GI GI Narrative: No focal area tenderness. No rebound or guarding. Palpation: Negative for guarding, rigid or hepatomegaly Back/Spine no CVA tenderness Neuro CN's II-XII intact bilaterally and moves all extremities Sensorium / Orientation: alert Motor Exam: strength 5/5 throughout Skin General Skin Exam: Negative for jaundice or pallor MDM MDM MDM Narrative Medical decision making narrative: Patient presenting with multiple complaints. States initially was having nausea and vomiting for couple of days. He states he is not able to hold anything down and having diffuse crampy abdominal pain. He also states today he is having some chest discomfort on the left which has been there since yesterday. That it intermittent tingling that he gets in his left arm has had for a couple of weeks. Neuroexam is normal and he has 5 out of 5 strength and sensation also normal. IV line was established. Patient was given Zofran for his nausea. Differential includes ACS, pneumonia,, pneumothorax, costochondritis, pleurisy, aspiration pneumonia, Boerhaave's, gastritis, GERD, cholelithiasis, colitis, diverticulitis, UTI, pyelonephritis. Patient PERC negative. CBC will be obtained to assess white blood cell count, hemoglobin, platelets. CMP to assess renal function, electrolytes, liver function, glucose. Lipase to assess for pancreatitis. Urinalysis to assess for UTI. High-sensitivity troponin and EKG to assess for ischemia/dysrhythmia. Chest x-ray to rule out pneumonia. CBC shows normal white blood cell count of 6.5. Hemoglobin 14.7. Platelets are normal at 245. Renal function and electrolytes within normal limits. LFTs are normal. Lipase is normal. EKG interpreted by myself shows a sinus rhythm at 70 bpm without signs of ischemic change or dysrhythmia. Chest x-ray interpreted by myself shows no acute cardiopulmonary process. High-sensitivity troponin is less than 3 and since he has been having the pain since yesterday I do not believe he needs a delta troponin. Radiologist interprets this and agrees. CT of the abdomen pelvis is negative. Reevaluation at 9:20 AM the patient is feeling much better. I will write him a prescription for Zofran and MiraLAX as a CT shows constipation. Patient amenable to this plan. He is discharged stable condition. Impression: 1. Chest pain 2. Abdominal pain 3. Nausea/vomiting 4. Paresthesia left upper extremity 5. Constipation Lab Data Attestation: I reviewed the patient's lab results. Labs: Laboratory Results - last 24 hr 01/18/24 08:40 WBC 6.5 RBC 4.59 L Hgb 14.7 Hct 43.9 MCV 95.6 H MCH 32.0 MCHC 33.5 RDW Std Deviation 45.5 H RDW Coeff of Romel 12.9 Plt Count 245 MPV 10.1 Immature Gran % (Auto) 0.600 Neut % (Auto) 66.6 Lymph % (Auto) 22.2 [place] % (Auto) 7.7 Eos % (Auto) 2.6 Baso % (Auto) 0.3 Absolute Neuts (auto) 4.3 Absolute Lymphs (auto) 1.44 Nucleated RBC % 0 Sodium 138 Potassium 3.7 Chloride 105 Carbon Dioxide 29.0 Anion Gap 4 L BUN 14 Creatinine 0.98 Estim Creat Clear Calc 93.97 Est GFR (MDRD) Af Amer 108 Est GFR (MDRD) Non-Af 89 BUN/Creatinine Ratio 14.3 Glucose 91 Calcium 8.5 Total Bilirubin 0.40 AST 37 ALT 29 Alkaline Phosphatase 91 Troponin I High Sens < 3 L Total Protein 6.4 Albumin 3.6 Globulin 2.8 Albumin/Globulin Ratio 1.3 Lipase 26 Radiography Diagnostic Testing: Clinical Impression(s) from Imaging Studies Abdomen/Pelvis CT 01/18/24 08:25 IMPRESSION: Large amount of fecal material is seen in the colon. Electronically Signed: Cong Jenkins MD at 9:17 EDT , Chest X-Ray 01/18/24 08:50 IMPRESSION: Normal x-ray examination of the chest. Electronically Signed: Cong Jenkins MD at 9:09 EDT , Discharge Plan Triage Chief Complaint: Nausea/Vomiting ED Provider: Harris Madrid Dx/Rx/DC Orders Instructions: ED Chest Pain, Noncardiac, ED Constipation (Adult), ED Vomiting (Adult), ED Abdominal Pain Unkn Cause Male... Prescriptions: New ondansetron 4 mg tablet,disintegrating 4 mg PO Q8H PRN PRN (Reason: Nausea) Qty: 10 0RF polyethylene glycol 3350 [Miralax] 17 gram/dose powder 17 g PO DAILY PRN (Reason: constipation) Qty: 119 0RF No Action cyclobenzaprine 10 mg tablet 10 mg PO TID Patient Comments: take 1 tablet by mouth three times a day for 5 days naproxen 500 mg tablet 500 mg PO BID Patient Comments: take 1 tablet by mouth twice a day for 7 days diazepam [Valium] 5 mg tablet 5 mg PO TID PRN (Reason: muscle spasm) Qty: 12 0RF naproxen 500 MG tablet 500 mg PO BID PRN Qty: 20 0RF cyclobenzaprine 10 mg tablet 10 mg PO TID PRN (Reason: muscle spasm) Qty: 12 0RF Primary Care Provider: Zoey Roberts NP Referrals: Zoey Roberts NP, [employer] [Primary Care Provider] - Print Language: Vincentian Disposition Disposition: Home, Self Care
[2024-01-18] MEDS: Ondansetron 4 MG/2 ML Vial IV (08:38)
[2024-01-18] MEDS: 0.9% Normal Saline (1000mL) 1,000 ML 999 ML IV (08:38)
--- NOTE | 2024-01-18 08:50 | RAD_ITS ---
STUDY: X-RAY CHEST REASON FOR EXAM: Male, 43 years old. Chest pain TECHNIQUE: PA and lateral views of the chest. COMPARISON: Comparison is made with prior study dated March 21, 2023. FINDINGS: EKG electrodes are seen. Hyperinflation. The lungs are clear. There is no demonstrated pleural abnormality. Normal size heart. Normal mediastinum and tanya. Normal visualized pulmonary arteries. Normal visualized aortic arch and descending thoracic aorta. Normal visualized thoracic spine. Normal visualized ribs, clavicles, and shoulders. There is no demonstrated abnormality of the visualized soft tissue structures of the upper abdomen. RAD/Chest 1 View (Portable) IMPRESSION: Normal x-ray examination of the chest. Electronically Signed: Cong Jenkins MD at 9:09 EDT ,
[2024-01-18 08:52] LABS: Absolute Lymphocyte Count 1.44 X10^3/uL (0.83-4.51); Absolute Neutrophil Count 4.3 X10^3/uL (2.0-7.7); Basophil# 0.02 X10^3/uL; Basophil% 0.3 % (0-1); Eosinophil# 0.17 X10^3/uL; Eosinophils% 2.6 % (0-5); Hematocrit 43.9 % (40-54); Hemoglobin 14.7 g/dL (13.0-16.5); Lymphocyte # 1.44 X10^3/ul (0.83-4.51); Lymphocyte % 22.2 % (19-41); Mean Corp Hgb Conc 33.5 g/dL (32-36); Mean Corpuscular Volume 95.6 fL (80-94); Mean Platelet Vol. 10.1 fl (6.2-12.0); Monocyte% 7.7 % (0-10); NRBC Flagged by Analyzer 0 % (0-5); Neutrophil # 4.31 X10^3/uL (2.7-7.7); Neutrophil % 66.6 % (47-70); Platelet Count 245 K/mm3 (150-450); RBC Distribution Width CV 12.9 % (11.6-14.6); RBC Distribution Width SD 45.5 fl (35.1-43.9); Red Blood Count 4.59 M/mm3 (4.6-6.2); White Blood Count 6.5 K/mm3 (4.4-11.0)
[2024-01-18 09:17] LABS: ALB/GLOB Ratio 1.3 RATIO (0.9-2.4); AST(SGOT) 37 U/L (15-37); Alanine Aminotransfer ALT/SGPT 29 U/L (16-61); Albumin, Serum 3.6 g/dL (3.2-5.0); Alkaline Phosphatase 91 U/L (45-117); Anion Gap 4 (5-15); BUN 14 mg/dL (7-18); BUN/Creat Ratio 14.3 RATIO (10-20); Calcium,Total 8.5 mg/dL (8.5-10.1); Chloride 105 mmol/L (98-107); Creatinine, Serum 0.98 mg/dL (0.70-1.30); EST Glomerular Filtration Rate 89 mL/min (>60); Est Glom Filt Rate - Afr Amer 108 mL/min (>60); Estimated Creatinine Clearance 93.97 ml/min; Globulin 2.8 g/dL (2.2-4.2); Glucose 91 mg/dL (74-106); Lipase 26 U/L (13-75); Potassium 3.7 mmol/L (3.5-5.1); Protein, Total 6.4 g/dL (6.4-8.2); Sodium Level 138 mmol/L (136-145); Troponin-I HS < 3 pg/mL (3.0-78.0)
[2024-01-18 09:38] VITALS: BP 115/66; PULSE 66; RESP 14; TEMP 36.6; O2SAT 100
== END 2024-01-18 09:42 | disposition home or self-care (01) ==
PROVIDERS: Emergency Provider Student in an Organized Health Care Education/Training Program; PCP Nurse Practitioner Family; Visit Provider Student in an Organized Health Care Education/Training Program
DX: R07.9 Chest pain, unspecified (principal); R10.84 Generalized abdominal pain; K59.00 Constipation, unspecified; R11.2 Nausea with vomiting, unspecified; R20.0 Anesthesia of skin; R20.2 Paresthesia of skin; F17.210 Nicotine dependence, cigarettes, uncomplicated; Z59.00 Homelessness unspecified; Z79.899 Other long term (current) drug therapy
CPT/HCPCS: 71045; 74177; 80053; 83690; 84484; 85025; 93005; 96361; 96374; 99283; J7030; Q9967; A4216; J2405